=== PATIENT | male | born 1970 | race Caucasian/White ===

== ENCOUNTER 2017-11-06 13:23 | Emergency (ER) | payer OTHER ==
[~2017-11-06] VITALS: Ht 175.3 cm; Wt 97.0 kg
[2017-11-06 13:32] VITALS: BP 165/96; PULSE 105; RESP 17; O2SAT 96
[2017-11-06] MEDS ORDERED: HUMALOG SQ (13:37)
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
[2017-11-06] MEDS ORDERED: oxyCODONE/ACETAMINOPHEN 5 MG/325 MG TAB PO ONE (15:15)
[2017-11-06] MEDS ORDERED: PERC5TAB12 PO (15:24)
[2017-11-06] MEDS ORDERED: DIAZ5 PO (15:24)
[2017-11-06] MEDS ORDERED: IBUP-232 PO (15:24)
== END 2017-11-06 15:47 | disposition home or self-care (01) ==
LOC: NEPD 13:23
DX: S13.4XXA Sprain of ligaments of cervical spine, initial encounter (principal); V53.6XXA Passenger in pick-up truck or van injured in collision with car, pick-up truck or van in traffic accident, initial encounter; M51.35 Other intervertebral disc degeneration, thoracolumbar region; E11.9 Type 2 diabetes mellitus without complications; F17.200 Nicotine dependence, unspecified, uncomplicated
CPT/HCPCS: 72072; 72100; 72125; 99284